=== PATIENT | female | born 2000 | race Caucasian/White ===

== ENCOUNTER 2022-11-10 15:32 | Emergency (ER) | payer OTHER ==
[~2022-11-10] VITALS: Ht 170.2 cm; Wt 71.2 kg
[2022-11-10] MEDS ORDERED: MACRODANTIN100 M1 PO (19:10)
== END 2022-11-10 19:19 | disposition home or self-care (01) ==
LOC: ER 15:33
PROVIDERS: General Practice
DX: O20.8 Other hemorrhage in early pregnancy (principal); Z3A.01 Less than 8 weeks gestation of pregnancy

== ENCOUNTER 2022-12-19 11:22 | Outpatient (CLI) | payer OTHER ==
[~2022-12-19 11:22] MED LIST: MACRODANTIN100 M1 PO
== END 2022-12-19 12:26 | disposition home or self-care (01) ==
LOC: PRENATAL 11:22
PROVIDERS: ATTEND Obstetrics & Gynecology Maternal & Fetal Medicine
DX: O36.80X0 Pregnancy with inconclusive fetal viability, not applicable or unspecified (principal); Z36.82 Encounter for antenatal screening for nuchal translucency; Z36.9 Encounter for antenatal screening, unspecified; Z3A.13 13 weeks gestation of pregnancy

== ENCOUNTER → 2023-02-06 08:14 | Outpatient (CLI) | payer OTHER | END | disposition home or self-care (01) | LOC: PRENATAL 08:14 | PROVIDERS: ATTEND Obstetrics & Gynecology Maternal & Fetal Medicine | DX: O35.9XX0 Maternal care for (suspected) fetal abnormality and damage, unspecified, not applicable or unspecified (principal); O35.3XX0 Maternal care for (suspected) damage to fetus from viral disease in mother, not applicable or unspecified; O44.00 Complete placenta previa NOS or without hemorrhage, unspecified trimester; Z3A.20 20 weeks gestation of pregnancy ==

== ENCOUNTER 2023-04-28 09:05 | Outpatient (CLI) | payer OTHER ==
[~2023-04-28 09:05] MED LIST changes: +PRENATAL TABLE1 EAC1 PO
== END 2023-04-28 09:06 | disposition home or self-care (01) ==
LOC: PRENATAL 09:05
PROVIDERS: ATTEND Obstetrics & Gynecology Maternal & Fetal Medicine
DX: O26.849 Uterine size-date discrepancy, unspecified trimester (principal); O36.8199 Decreased fetal movements, unspecified trimester, other fetus; Z3A.32 32 weeks gestation of pregnancy

== ENCOUNTER 2023-05-04 18:27 | Inpatient (IN) | payer OTHER ==
[~2023-05-04] VITALS: Ht 170.2 cm; Wt 81.6 kg
[2023-05-04] MEDS ORDERED: BETAMETHASONE ACETATE,SOD PHOS 30 MG/5 ML ML IM ONE (19:05)
[2023-05-04] MEDS ORDERED: BETAMETHASONE ACETATE,SOD PHOS 30 MG/5 ML ML ONE (19:09)
[2023-05-04] MEDS ORDERED: NIFEDIPINE 30 MG TAB.SA.OSM PO ONE ×2 (19:10→19:15)
[2023-05-04] MEDS ORDERED: RINGERS SOLUTION,LACTATED 1,000 ML IV SCH (19:45)
[2023-05-04 19:53] LABS: HEMATOCRIT 32.7 % (36.0-45.00); HEMOGLOBIN 10.8 g/dL (12.0-15.00); MEAN CELL VOLUME 80.7 fL (80.00-100.00); MEAN CORPUSCULAR HEMOGLOBIN 26.6 pg (27.00-32.0); PLATELET COUNT 294 K/uL (150-450); RED BLOOD COUNT 4.05 M/uL (4.00-6.00); RED CELL DISTRIBUTION WIDTH 14.6 % (11.5-14.5)
[2023-05-04 19:56] LABS: URINE APPEARANCE Clear; URINE BILIRRUBIN Negative (NEGATIVE); URINE BLOOD Negative; URINE COLOR Yellow; URINE GLUCOSE Negative (NEGATIVE); URINE LEUKOCYTE Negative; URINE NITRATE Negative; URINE PROTEIN Negative (NEGATIVE); URINE UROBILINOGEN 0.2 E.U./dl
[2023-05-04 19:59] LABS: URINE BACTERIA 6.2 uL (0.0-1933); URINE EPITHELIAL CELLS 5.7 uL (0.0-38.8); URINE WBC 4.9 uL (0.0-23.2)
[2023-05-04 20:10] LABS: URINE RBC 1.1 uL (0.0-20.8)
[2023-05-04 20:14] LABS: INR < 0.93; PARTIAL THROMBOPLASTIN TIME 24.8 SECONDS (22.0-34.0); PROTHROMBIN TIME 9.7 SECONDS (9.0-11.5)
[2023-05-04 20:16] LABS: URINE YEAST NEGATIVE /hpf
[2023-05-04 20:20] LABS: BILIRUBIN TOTAL 0.23 mg/dL (0.3-1.2); CALCIUM 9.3 mg/dL (8.5-10.1); CREATININE SERUM 0.56 mg/dL (0.55-1.02); GLOBULINA 4.2 G/DL (2.4-3.5); POTASSIUM 3.89 mEq/L (3.5-5.1); TOTAL PROTEIN 7.2 gm/dL (6.4-8.2)
[2023-05-05] MEDS ORDERED: NIFEDIPINE 30 MG TAB.SA.OSM PO SCH (09:00)
[2023-05-05] MEDS ORDERED: BETAMETHASONE ACETATE,SOD PHOS 30 MG/5 ML ML IM ONE (19:45)
[2023-05-06] MEDS ORDERED: NIFEDIPINE ER30 MG PO (07:07)
== END 2023-05-06 11:47 | disposition home or self-care (01) | DRG 833 ==
LOC: OBS/DEL 18:27 → LDR 18:36 → OB/GYN 05-05 13:52
PROVIDERS: ADMIT Obstetrics & Gynecology; ATTEND Obstetrics & Gynecology
PROC: 4A1HXCZ Monitoring of Products of Conception, Cardiac Rate, External Approach (ICD-10-PCS; principal; 2023-05-04)
PROC: BY4FZZZ Ultrasonography of Third Trimester, Single Fetus (ICD-10-PCS; 2023-05-05)
PROC: BU4CZZZ Ultrasonography of Uterus and Ovaries (ICD-10-PCS; 2023-05-05)
DX: O60.03 Preterm labor without delivery, third trimester (principal); O36.8130 Decreased fetal movements, third trimester, not applicable or unspecified; O26.843 Uterine size-date discrepancy, third trimester; Z3A.32 32 weeks gestation of pregnancy; Z20.822 Contact with and (suspected) exposure to COVID-19

== ENCOUNTER 2023-05-29 09:56 | Outpatient (CLI) | payer OTHER ==
[~2023-05-29 09:56] MED LIST changes: +NIFEDIPINE ER30 MG PO
== END 2023-05-29 10:37 | disposition home or self-care (01) ==
LOC: NST 09:56
PROVIDERS: ATTEND Obstetrics & Gynecology
DX: Z34.83 Encounter for supervision of other normal pregnancy, third trimester (principal)

== ENCOUNTER 2023-06-05 12:17 | Outpatient (CLI) | payer OTHER | END 2023-06-05 12:34 | disposition home or self-care (01) | LOC: NST 12:17 | PROVIDERS: ATTEND Obstetrics & Gynecology | DX: Z34.83 Encounter for supervision of other normal pregnancy, third trimester (principal) ==

== ENCOUNTER 2024-11-25 14:26 | Inpatient (IN) | payer OTHER ==
[~2024-11-25] VITALS: Ht 170.2 cm; Wt 81.6 kg
[2024-11-25] MEDS ORDERED: SYNTHROID50 MCG PO (15:03)
--- NOTE | 2024-11-25 15:06 | NUR ---
PACIENTE FEMINA ALERTA Y ORIENTADA X3 QUIEN REFIERE QUE COMENZO CON VOMITOS DESDE ADAN Y DOLOR ABDOMINAL. SE MONITOREAN S/V Y SE UBICA PACIENTE.
[2024-11-25] MEDS ORDERED: FAMOTIDINE/PF 20 MG/2 ML VIAL IV ONE (16:00)
[2024-11-25] MEDS ORDERED: ACETAMINOPHEN 500 MG GEL..CAP PO ONE ×2 (16:15→16:40)
[2024-11-25] MEDS ORDERED: ONDANSETRON HCL 2 MG/ML VIAL IV ONE (16:15)
[2024-11-25] MEDS ORDERED: 0.9 % SODIUM CHLORIDE 1,000 ML IV ONE (16:15)
[2024-11-25] MEDS ORDERED: ONDANSETRON HCL 2 MG/ML VIAL ONE (16:39)
[2024-11-25] MEDS ORDERED: FAMOTIDINE/PF 20 MG/2 ML VIAL ONE ×2 (16:40→22:37)
--- NOTE | 2024-11-25 16:50 | NUR ---
SE ORIENTA PTE SOBRE TX MEDICO EL CUAL REFIERE ENTENDER.SE LE EXTRAEN MUESTRAS BAJO MEDIDAS ASEPTICAS,SE CANALIZA Y SE ADMINISTRA MEDICAMENTO YENNI ORDEN MEDICA.SE NOTIFICA CT PENDIENTE.
[2024-11-25 17:09] LABS: BASO % 0.3 % (0.1-1.2); EOS # 0.00 (0.04-0.54); EOS % 0.0 % (0.7-7.0); LYMPH # 1.81 (1.18-3.74); LYMPH % 10.4 % (19.3-53.1); MEAN PLATELET VOLUME 10.20 fl (9.4-12.4); MONO # 1.21 (0.24-0.82); MONO % 6.9 % (4.7-12.5); NEUT # 14.26 (1.56-6.13); NEUT % 81.9 % (34.0-71.1); RED CELL DISTRIBUTION WIDTH 13.9 % (11.6-14.4)
[2024-11-25 17:33] LABS: URINE APPEARANCE Turbid; URINE BILIRRUBIN Negative (NEGATIVE); URINE BLOOD Moderate; URINE COLOR Dark Yellow; URINE GLUCOSE Negative (NEGATIVE); URINE LEUKOCYTE Large; URINE NITRATE Positive; URINE UROBILINOGEN 1.0 E.U./dl
[2024-11-25 17:36] LABS: URINE CAST 1.75 uL (0.0-1.40); URINE EPITHELIAL CELLS 12.6 uL (0.0-38.8); URINE RBC 27.9 uL (0.0-20.8)
[2024-11-25 17:42] LABS: ALT/SGPT 19.0 U/L (12-78); AST/SGOT 8.0 U/L (15-37); BILIRUBIN TOTAL 0.74 mg/dL (0.3-1.2); BUN CREA RATIO 9.0 (7.0-25.0); CREATININE SERUM 0.82 mg/dL (0.55-1.02); GFR 84.27; GLOBULINA 5.2 G/DL (2.4-3.5); GLUCOSE FASTING 112.0 mg/dL (65-100); OSMOLALITY SERUM 276.0 MOSM/KG (275-295)
[2024-11-25 18:03] LABS: TYPE CELLS TRANSITIONAL; URINE BACTERIA > 9821.5 uL (0.0-1933); URINE KETONE 40 (NEGATIVE); URINE PROTEIN 300 (NEGATIVE); URINE WBC > 5548.3 uL (0.0-23.2)
[2024-11-25] MEDS ORDERED: CEFTRIAXONE SODIUM 2,000 MG VIAL IV ONE (18:30)
[2024-11-25] MEDS ORDERED: CEFTRIAXONE SODIUM 2,000 MG VIAL ONE (18:57)
[2024-11-25] MEDS ORDERED: CEFTRIAXONE SODIUM 2,000 MG in 0.9 % SODIUM CHLORIDE 100 ML IV SCH (21:57)
[2024-11-25] MEDS ORDERED: FAMOTIDINE/PF 20 MG in 0.9 % SODIUM CHLORIDE 8 ML IV PUSH SCH (21:58)
[2024-11-25] MEDS ORDERED: 0.9 % SODIUM CHLORIDE 1,000 ML IV SCH (22:00)
[2024-11-25] MEDS ORDERED: ACETAMINOPHEN 325 MG TABLET PO PRN (22:00)
[2024-11-25] MEDS ORDERED: ONDANSETRON HCL 4 MG in 0.9 % SODIUM CHLORIDE 50 ML IV PRN (22:00)
[2024-11-25] MEDS ORDERED: PHENAZOPYRIDINE HCL 100 MG TABLET PO SCH (22:18)
[2024-11-25] MEDS ORDERED: KETOROLAC TROMETHAMINE 30 MG VIAL IV PRN (22:30)
[2024-11-26] MEDS ORDERED: LEVOTHYROXINE SODIUM 50 MCG TABLET PO SCH (06:00)
[2024-11-26 10:58] VITALS: BP 120/77; O2SAT 99
[2024-11-26] MEDS ORDERED: MEROPENEM 500 MG/VIAL VIAL IV SCH (14:00)
[2024-11-26] MEDS ORDERED: METHYLPREDNISOLONE SOD SUCC 40 MG VIAL ONE (15:26)
[2024-11-26] MEDS ORDERED: DIPHENHYDRAMINE HCL 50 MG/ML VIAL 1ML ONE (15:26)
[2024-11-26] MEDS ORDERED: DIPHENHYDRAMINE HCL 50 MG/ML VIAL 1ML IV NR (16:00)
[2024-11-26 16:23] VITALS: BP 120/72; O2SAT 96
[2024-11-26] MEDS ORDERED: LACTOBACILLUS ACIDOPHILUS 1 CAP CAP PO SCH (17:00)
[2024-11-27 00:48] VITALS: BP 114/65; O2SAT 95
[2024-11-27 08:00] VITALS: BP 106/60; O2SAT 97
[2024-11-27 08:05] LABS: BASO % 0.5 % (0.1-1.2); EOS # 0.08 (0.04-0.54); EOS % 0.9 % (0.7-7.0); LYMPH # 1.09 (1.18-3.74); LYMPH % 12.9 % (19.3-53.1); MEAN PLATELET VOLUME 10.40 fl (9.4-12.4); MONO # 0.65 (0.24-0.82); MONO % 7.7 % (4.7-12.5); NEUT # 6.53 (1.56-6.13); NEUT % 77.3 % (34.0-71.1); RED CELL DISTRIBUTION WIDTH 13.8 % (11.6-14.4)
[2024-11-27 09:22] LABS: ALT/SGPT 20.0 U/L (12-78); AST/SGOT 12.0 U/L (15-37); BILIRUBIN TOTAL 0.45 mg/dL (0.3-1.2); BUN CREA RATIO 9.0 (7.0-25.0); CREATININE SERUM 0.53 mg/dL (0.55-1.02); GFR 139.44; GLOBULINA 3.9 G/DL (2.4-3.5); GLUCOSE FASTING 104.0 mg/dL (65-100); OSMOLALITY SERUM 273.0 MOSM/KG (275-295)
[2024-11-27] MEDS ORDERED: AZTREONAM 1,000 MG VIAL IV STA (15:08)
[2024-11-27 16:00] VITALS: BP 117/73; O2SAT 97
[2024-11-28] MEDS ORDERED: AZTREONAM 1,000 MG VIAL IV SCH (01:00)
[2024-11-28 01:36] VITALS: BP 100/52; O2SAT 100
[2024-11-28 08:17] VITALS: BP 106/70; O2SAT 95
[2024-11-28 16:00] VITALS: BP 116/76; O2SAT 98
[2024-11-29 02:47] VITALS: BP 98/62; O2SAT 97
[2024-11-29 08:00] VITALS: BP 113/59; O2SAT 96
[2024-11-29 16:35] VITALS: BP 117/78; O2SAT 94
[2024-11-30 01:18] VITALS: BP 110/69; O2SAT 97
[2024-11-30 08:00] VITALS: BP 109/69; O2SAT 97
[2024-11-30 17:19] VITALS: BP 108/70; O2SAT 95
[2024-12-01 01:46] VITALS: BP 100/62; O2SAT 99
[2024-12-01 08:29] VITALS: BP 99/63; O2SAT 96
[2024-12-01 16:00] VITALS: BP 106/71; O2SAT 97
[2024-12-02 01:17] VITALS: BP 97/62; O2SAT 100
[2024-12-02 06:25] LABS: BASO % 0.8 % (0.1-1.2); EOS # 0.43 (0.04-0.54); EOS % 4.5 % (0.7-7.0); LYMPH # 3.27 (1.18-3.74); LYMPH % 33.9 % (19.3-53.1); MEAN PLATELET VOLUME 10.40 fl (9.4-12.4); MONO # 0.52 (0.24-0.82); MONO % 5.4 % (4.7-12.5); NEUT # 5.06 (1.56-6.13); NEUT % 52.3 % (34.0-71.1); RED CELL DISTRIBUTION WIDTH 13.6 % (11.6-14.4)
[2024-12-02 06:46] LABS: BUN CREA RATIO 20.0 (7.0-25.0); CREATININE SERUM 0.61 mg/dL (0.55-1.02); GFR 118.56; GLUCOSE FASTING 87.0 mg/dL (65-100); OSMOLALITY SERUM 277.0 MOSM/KG (275-295)
[2024-12-02 08:00] VITALS: BP 113/69; O2SAT 96
[2024-12-02] MEDS ORDERED: LEVOFLOXACIN500 MG PO (16:44)
[2024-12-02] MEDS ORDERED: LEVOTHYROXINE50 MCG PO (16:44)
[2024-12-02] MEDS ORDERED: INTESTINEX680 M1 PO (16:44)
== END 2024-12-02 18:39 | disposition home or self-care (01) | DRG 690 ==
LOC: ER 14:26 → MEDI 22:10 → SURH 11-26 16:04
PROVIDERS: General Practice; Internal Medicine; ADMIT Internal Medicine; ATTEND Internal Medicine
PROC: BW21ZZZ Computerized Tomography (CT Scan) of Abdomen and Pelvis (ICD-10-PCS; principal; 2024-11-25)
PROC: 8E0ZXY6 Isolation (ICD-10-PCS; 2024-11-26)
DX: N39.0 Urinary tract infection, site not specified (principal); Z16.12 Extended spectrum beta lactamase (ESBL) resistance; B96.29 Other Escherichia coli [E. coli] as the cause of diseases classified elsewhere; R30.0 Dysuria; E03.9 Hypothyroidism, unspecified